=== PATIENT | female | born 1950 | race Caucasian/White ===

== ENCOUNTER 2020-06-05 09:19 | Outpatient (CLI) | payer OTHER, SELFPAY ==
--- NOTE | ~2020-06-05 | MM_ITS ---
EXAMINATION: MM screening tommie BI w harvinder HISTORY: Screening TECHNIQUE: Craniocaudal and mediolateral oblique 3-D tomosynthesis images were obtained and synthetic 2-D images were generated. CAD analysis was submitted and interpreted. COMPARISON: Comparison to multiple prior studies sequentially, with oldest reviewed study dated 04/24. BREAST PARENCHYMAL COMPOSITION: The breasts are extremely dense, which lowers the sensitivity of mamm ography. FINDINGS: There is no evidence of suspicious mass, calcification, or architectural distortion to sugg est malignancy in either breast. There has been no suspicious interval change. IMPRESSION: 1. No mammographic evidence of malignancy. 2. Recommend routine screening mammography in one year. BI-RADS Category 1: Negative Reviewed, dictated and finalized at location A.
== END 2020-06-05 09:20 | disposition home or self-care (01) ==
PROVIDERS: PCP Family Medicine; Visit Provider Obstetrics & Gynecology Gynecology
DX: Z12.31 Encounter for screening mammogram for malignant neoplasm of breast (principal)
CPT/HCPCS: 77063; 77067

== ENCOUNTER 2021-06-15 10:22 | Outpatient (CLI) | payer OTHER, SELFPAY ==
--- NOTE | ~2021-06-15 | DEXA_ITS ---
Bone Density Report Name: Doreen Ingram Age: 71 Sex: Female Ethnicity: White Date of : 1950 Indication: postmenopausal; Referring Provider: JUAN, ARACELIS Study: Bone densitometry was performed. Exam Date: June 15, 2021 Accession number: [id number] Bone Density: Region BMD T-score Z-score Classification AP Spine (L1, L3) 1.282 2.4 4.6 Normal Femoral Neck (Left) 0.739 -1.0 0.9 Normal Total Hip (Left) 0.816 -1.0 0.6 Normal Total Hip Bilateral Avg 0.811 -1.1 0.6 Osteopenia Femoral Neck (Right) 0.727 -1.1 0.8 Osteopenia Total Hip (Right) 0.804 -1.1 0.5 Osteopenia World Health Organization criteria for BMD impression classify patients as: Normal (T-score at or above -1.0), Osteopenia (T-score between -1.0 and -2.5), or Osteoporosis (T-score at or below -2.5). 10-year Fracture Risk(1): Major Osteoporotic Fracture 9.1% Hip Fracture 1.2% Reported Risk Factors: [place] (), Neck BMD=0.727, BMI=23.1 (1) FRAX(R) Version 3.08. Fracture probability calculated for an untreated patient. Fracture probability may be lower if the patient has received treatment. Previous Exams: Region Exam Age BMD T-score BMD Change BMD Change Date g/cm2 vs Baseline vs Previous AP Spine(L1, L3) 06/15/2021 71 1.282 2.4 0.017(1.3%)# 0.054(4.4%)* 06/01/2018 68 1.228 2.0 -0.037(-2.9%)# -0.018(-1.4%) 04/24/2015 65 1.246 2.1 -0.019(-1.5%)# -0.019(-1.5%)# 03/29/2012 62 1.265 2.3 Total Hip(Left) 06/15/2021 71 0.816 -1.0 -0.119(-12.7%) -0.020(-2.4%) 06/01/2018 68 0.836 -0.9 -0.099(-10.6%) -0.092(-9.9%)* 04/24/2015 65 0.928 -0.1 -0.007(-0.8%)# -0.007(-0.8%)# 03/29/2012 62 0.935 -0.1 Total Hip(Right) 06/15/2021 71 0.804 -1.1 -0.103(-11.3%) -0.029(-3.5%)* 06/01/2018 68 0.833 -0.9 -0.074(-8.1%)# -0.024(-2.8%) 04/24/2015 65 0.857 -0.7 -0.050(-5.5%)# -0.050(-5.5%)# 03/29/2012 62 0.907 -0.3 *Denotes significance at 95% confidence level, LSC for AP Spine = 0.022 g/cm2, LSC for Total Hip = 0.027 g/cm2 Clinical Information Provided by Patient: Has used the following medications: Vitamin D, Calcium Patient maximum height was 67 Menopause Age: 49 Drinks caffeinated beverages Onset of menses at age 13 Number of children 0 Impression: The patient has low bone mass, based on the Right Total Hip T-score. The patient has an estimated ten-year risk of hip fracture of 1.2% and
--- NOTE | ~2021-06-15 | MM_ITS ---
EXAMINATION: MM screening tommie BI w harvinder HISTORY: Screening TECHNIQUE: Craniocaudal and mediolateral oblique 3-D tomosynthesis images were obtained and synthetic 2-D images were generated. CAD analysis was submitted and interpreted. COMPARISON: Comparison to multiple prior studies sequentially, with oldest reviewed study dated 05/2016. BREAST PARENCHYMAL COMPOSITION: The breasts are extremely dense, which lowers the sensitivity of mamm ography. FINDINGS: There is no evidence of suspicious mass, calcification, or architectural distortion to sugg est malignancy in either breast. There has been no suspicious interval change. IMPRESSION: 1. No mammographic evidence of malignancy. 2. Recommend routine screening mammography in one year. BI-RADS Category 1: Negative Reviewed, dictated and finalized at location A.
== END 2021-06-15 10:23 | disposition home or self-care (01) ==
PROVIDERS: PCP Family Medicine; Visit Provider Nurse Practitioner
DX: Z12.31 Encounter for screening mammogram for malignant neoplasm of breast (principal); Z78.0 Asymptomatic menopausal state; M85.851 Other specified disorders of bone density and structure, right thigh
CPT/HCPCS: 77063; 77067; 77080

== ENCOUNTER 2021-08-20 10:25 | Outpatient (CLI) | payer OTHER, SELFPAY ==
--- NOTE | 2021-08-20 | ECG_ITS ---
Measurements Intervals [place] Rate: 59 P: 58 UT: 137 QRS: 52 QRSD: 77 T: 53 QT: 442 QTc: 441 Interpretive Statements SINUS BRADYCARDIA LEFT VENTRICULAR HYPERTROPHY AND ST-T CHANGE BORDERLINE ECG Electronically Signed On 08-20-2021 11:20:49 CDT by Michele Edge D.O.
== END 2021-08-20 10:26 | disposition home or self-care (01) ==
LOC: ANHLAB 10:27
PROVIDERS: PCP Family Medicine; Visit Provider Podiatrist Foot & Ankle Surgery
DX: R03.0 Elevated blood-pressure reading, without diagnosis of hypertension (principal)
CPT/HCPCS: 93005

== ENCOUNTER → 2022-07-26 10:41 | Outpatient (CLI) | payer OTHER, SELFPAY ==
--- NOTE | ~2022-07-26 | MM_ITS ---
EXAMINATION: MM screening tommie BI w harvinder HISTORY: .. TECHNIQUE: Craniocaudal and mediolateral oblique 3-D tomosynthesis images were obtained and synthetic 2-D images were generated. CAD analysis was submitted and interpreted. COMPARISON: 06/15/2021, 06/01/2020, 06/03/2019 bilateral screening mammogram examinations BREAST PARENCHYMAL COMPOSITION: The breasts are heterogeneously dense, which may obscure small masses . FINDINGS: There is no evidence of suspicious mass, calcification, or architectural distortion to sugg est malignancy in either breast. There has been no suspicious interval change. IMPRESSION: 1. No mammographic evidence of malignancy. 2. Recommend routine screening mammography in one year. BI-RADS Category 1: Negative Reviewed, dictated and finalized at location A.
== END ==
PROVIDERS: PCP Family Medicine; Visit Provider Obstetrics & Gynecology Gynecology
DX: Z12.31 Encounter for screening mammogram for malignant neoplasm of breast (principal)
CPT/HCPCS: 77063; 77067

== ENCOUNTER 2023-07-29 10:19 | Outpatient (CLI) | payer OTHER, SELFPAY ==
--- NOTE | ~2023-07-29 | MM_ITS ---
EXAMINATION: MM screening tommie BI w harvinder HISTORY: Screening mammogram TECHNIQUE: Craniocaudal and mediolateral oblique 3-D tomosynthesis images were obtained and synthetic 2-D images were generated. CAD analysis was submitted and interpreted. COMPARISON: 07/26/2022, 06/15/2021, 06/01/2020 bilateral screening mammogram examinations BREAST PARENCHYMAL COMPOSITION: The breasts are heterogeneously dense, which may obscure small masses . FINDINGS: There is no evidence of suspicious mass, calcification, or architectural distortion to sugg est malignancy in either breast. There has been no suspicious interval change. IMPRESSION: 1. No mammographic evidence of malignancy. 2. Recommend routine screening mammography in one year. BI-RADS Category 1: Negative Reviewed, dictated and finalized at location A.
== END 2023-07-29 10:20 | disposition home or self-care (01) ==
PROVIDERS: PCP Family Medicine; Visit Provider Family Medicine
DX: Z12.31 Encounter for screening mammogram for malignant neoplasm of breast (principal)
CPT/HCPCS: 77063; 77067

== ENCOUNTER 2024-08-02 10:09 | Outpatient (CLI) | payer OTHER, SELFPAY ==
--- NOTE | ~2024-08-02 | MM_ITS ---
EXAMINATION: MM screening tommie BI w harvinder HISTORY: Screening mammogram, family history of breast cancer in her sister. TECHNIQUE: Craniocaudal and mediolateral oblique 3-D tomosynthesis images were obtained and synthetic 2-D images were generated. CAD analysis was submitted and interpreted. COMPARISON: 07/29/2023, 07/26/2022, 06/15/2021, 06/05/2020 BREAST PARENCHYMAL COMPOSITION:Dense: The breasts are extremely dense, which lowers the sensitivity o f mammography. FINDINGS: No suspicious mass, calcification, or architectural distortion are identified in either aubrey ast to suggest malignancy. There has been no suspicious interval change. IMPRESSION: No mammographic evidence of malignancy. Recommend routine screening mammography in one year. BI-RADS Category 1: Negative Reviewed, dictated and finalized at location .
== END 2024-08-02 10:10 | disposition home or self-care (01) ==
LOC: ANHIMG 10:12
PROVIDERS: PCP Family Medicine; Visit Provider Family Medicine
DX: Z12.31 Encounter for screening mammogram for malignant neoplasm of breast (principal)
CPT/HCPCS: 77063; 77067

== ENCOUNTER 2024-09-19 08:08 | Outpatient (CLI) | payer OTHER, SELFPAY ==
[2024-09-19 09:37] LABS: Basophils Absolute Auto 0.1 K/mm3 (0.0-0.1); Basophils Percent Auto 1.3 % (0.2-1.2); Eosinophils Absolute Auto 0.4 K/mm3 (0-0.3); Eosinophils Percent Auto 6.2 % (0-4.4); Hematocrit 40.8 % (37.0-47.0); Hemoglobin 13.3 g/dL (12.0-15.0); Immature Granulocyte Absolute 0.02 K/mm3 (0.00-0.031); Immature Granulocyte Percent A 0.3 % (0-0.5); Lymphocytes Absolute Auto 1.86 K/mm3 (0.9-3.2); Lymphocytes Percent Auto 29.4 % (18.3-44.2); Mean Corpuscular HGB Conc 32.6 g/dl (32-36); Mean Corpuscular Hemoglobin 32.7 pg (26-34); Mean Corpuscular Volume 100.2 fl (80-100); Mean Platelet Volume 10.4 fl (7.4-10.4); Monocytes Absolute Auto 0.6 K/mm3 (0.1-0.6); Monocytes Percent Auto 8.7 % (2.6-8.5); Neutrophils Absolute Auto 3.4 K/mm3 (1.3-6.7); Neutrophils Percent Auto 54.1 % (45.5-73.1); Platelet Count Result 207 k/mm3 (150-375); Red Blood Count 4.07 M/mm3 (4.2-5.4); Red Cell Distribution Width 12.2 % (11.5-14.5); White Blood Count 6.3 K/mm3 (4.5-10.0)
[2024-09-19 09:51] LABS: Alanine Aminotransferase 22 U/L (6-35); Albumin Level 4.3 g/dL (3.5-5.1); Alkaline Phosphatase 65 U/L (38-126); Anion Gap 8 mmol/L (4-12); Aspartate Amino Transferase 40 U/L (14-36); Bilirubin,Total 0.7 mg/dL (0.2-1.3); Blood Urea Nitrogen 21 mg/dL (7-17); Calcium 9.2 mg/dL (8.4-10.2); Carbon Dioxide 28 mmol/L (22-30); Chloride 104 mmol/L (98-107); Cholesterol 209 mg/dL (0-200); Estimated Glomerular Filt Rate > 60; Glucose 101 mg/dL (65-110); HDL Direct 87 mg/dL; Potassium 4.6 mmol/L (3.4-5.0); Sodium 140 mmol/L (137-145); Triglycerides 76 mg/dL (<150)
[2024-09-19 10:09] LABS: LDL Cholesterol Direct 87 mg/dL
[2024-09-19 10:21] LABS: Vitamin D 25 Hydroxy 28.7 ng/mL
== END 2024-09-19 08:09 | disposition home or self-care (01) ==
LOC: ANHGOSHLAB 08:10
PROVIDERS: PCP Family Medicine; Visit Provider Nurse Practitioner Family
DX: E53.8 Deficiency of other specified B group vitamins (principal); E03.9 Hypothyroidism, unspecified; E06.9 Thyroiditis, unspecified; G90.09 Other idiopathic peripheral autonomic neuropathy; Z13.220 Encounter for screening for lipoid disorders; E61.1 Iron deficiency; E55.9 Vitamin D deficiency, unspecified
CPT/HCPCS: 36415; 80053; 80061; 82306; 82607; 84443; 85025

== ENCOUNTER 2025-08-27 08:28 | Outpatient (CLI) | payer OTHER, SELFPAY ==
--- NOTE | ~2025-08-27 | MM_ITS ---
EXAMINATION: MM screening tommie BI w harvinder HISTORY: Screening TECHNIQUE: Craniocaudal and mediolateral oblique 3-D tomosynthesis images were obtained and synthetic 2-D images were generated. CAD analysis was submitted and interpreted. COMPARISON: 07/29/2023 BREAST PARENCHYMAL COMPOSITION: The breasts are extremely dense, which lowers the sensitivity of mammography. FINDINGS: There is no evidence of suspicious mass, calcification, or architectural distortion to suggest malignancy. There has been no suspicious interval change. IMPRESSION: 1. No mammographic evidence of malignancy. Recommend routine screening mammography in one year. BI-RADS Category 2: Benign finding(s) Reviewed, dictated and finalized at location Q. IMPRESSION: 1. No mammographic evidence of malignancy. Recommend routine screening mammogra phy in one year. BI-RADS Category 2: Benign finding(s)
--- OUTSIDE RECORDS SUMMARY | 2025-08-27 08:56 | XMS_ITS | Encounter Summary ---
Author Organization [facility] Address [address] [facility] [place] [address] Care Team Providers Care Contact Center Rep Name Role Phone Unavailable Primary Care Provider Unavailabl e Encounter Details Date Type Department Care Team (Late st Contact Info) Description 09/02/2024 Lab Requisition [facility] - DermPath Lab [address] [place] [phone] Sabas Tarango MD [facility] [address] [place] [phone] Neoplasm of uncertain behavior of skin Social History Tobacco Use Types Packs/Day Years Used Date Smoking Tobacco: Never Assessed Comments Unknown Sex and Gender Information Value Date Recorded Sex Assigned at Not on file Legal Sex Female 4:42 PM CDT Gender Identity Not on file Sexual Orientation Not on file documented as of this encounter Plan of Treatment Not on file documented as of this encounter Procedures Procedure Name Priority Date/Time Associated Diagnosis Comments DERMATOPATHOLOGY Routine 09/02/2024 3:33 AM CDT Neoplasm of uncertain behavior of skin documented in this encounter Results * DERMATOPATHOLOGY (09/02/2024 3:33 AM CDT) Case Report Dermatopathology Report Case: [id number] Authorizing Provider: Sabas Tarango MD Collected: 09/02/2024 03:33 AM Ordering Location: [facility] - Received: 09/03/2024 12:21 PM DermPath Lab Pathologist: Cha Velazquez MD Specimen: Skin, left medial cheek 12:33 PM CDT DERMATOPATHOLOGY LABORATORY Final Diagnosis Specimen A. 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 The specimen consists of a shave biopsy measuring 5x5x1 mm. Jar 0. 12:33 PM CDT DERMATOPATHOLOGY LABORATORY Microscopic Description Specimen A. SKIN, left medial cheek: Within the dermis there are aggregates of basaloid cells with a high nuclear to cytoplasmic ratio and peripheral palisading. 12:33 PM CDT DERMATOPATHOLOGY LABORATORY Disclaimer An external and internal positive and negative controls are appropriate for the histochemical, immunohistochemical and immunofluorescence stain(s) in this case (if any), except where stated explicitly. The performance characteristics of the stain(s) cited in this report were developed and its performance characteristic determined by the Dermatopathology Laboratory at [facility], directed by Dr. Carlyle Galloway. These tests need not be, and therefore are not, approved by the [place] Food and Drug Administration. The tests are used for clinical purposes. Billing Codes Specimen Charges Stain Charges 54185 1 12:33 PM CDT DERMATOPATHOLOGY LABORATORY Embedded Images 12:33 PM CDT DERMATOPATHOLOGY LABORATORY Pathology/Cytolo gy TISSUE SPECIMEN FROM SKIN / Unknown 09/02/2024 3:33 AM CDT 09/03/2024 12:21 PM CDT us Sabas Tarango MD LAB - PATHOLOGY/CYTOLOGY [facility] Final Result DERMATOPATHOLOGY LABORATORY [facility] - Department of Dermatology [address], [address] [phone] documented in this encounter Visit Diagnoses Diagnosis Neoplasm of uncertain behavior of skin documented in this encounter
--- OUTSIDE RECORDS SUMMARY | 2025-08-27 08:56 | XMS_ITS | Encounter Summary ---
Author Organization [facility] Address [address] [facility] [place] [address] Care Team Providers Care Automobile Leasing Supervisor Name Role Phone Unavailable Primary Care Provider Unavailabl e Encounter Details Date Type Department Care Team (Late st Contact Info) Description 02/21/2025 Lab Requisition [facility] - DermPath Lab [address] [place] [phone] Sabas Tarango MD [facility] [address] [place] [phone] Social History Tobacco Use Types Packs/Day Years [...] Priority Date/Time Associated Diagnosis Comments DERMATOPATHOLOGY Routine 02/20/2025 12:0 0 AM CDT documented in this encounter Results * DERMATOPATHOLOGY (02/20/2025 12:00 AM CDT) Case Report Dermatopathology Report Case: [id number] Authorizing Provider: Sabas Tarango MD Collected: 02/20/2025 12:00 AM Ordering Location: [facility] - Received: 02/21/2025 04:43 PM DermPath Lab Pathologist: Randa Muse MD Specimens: A) - Skin, right lateral calf B) - Skin, right nasal dorsum 1:39 PM CDT DERMATOPATHOLOGY LABORATORY Final Diagnosis Specimen A. 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 SKIN, right nasal dorsum: BASAL CELL CARCINOMA, NODULAR TYPE (C44.311) 1:39 PM CDT DERMATOPATHOLOGY LABORATORY at 1339 CDT Clinical History A: SCC vs Keratoacanthoma B: BCC 1:39 PM CDT DERMATOPATHOLOGY LABORATORY Gross Description Specimen A: Received is one formalin filled container labeled with the patient's name and designated right lateral calf. The specimen consists of a shave biopsy measuring 25z00c3 mm. Jar 0. Specimen B: Received is one formalin filled container labeled with the patient's name and designated right nasal dorsum. The specimen consists of a shave biopsy measuring 6x5x1 mm. Jar 0. 1:39 PM CDT DERMATOPATHOLOGY LABORATORY Microscopic Description Specimen A. SKIN, right lateral calf: The epidermis is acanthotic and shows full thickness disorderly maturation of keratinocytes, mitoses at different levels, and dyskeratotic cells. There is overlying parakeratosis and hyperkeratosis. Focal nests are present in the dermis. Specimen B. SKIN, right nasal dorsum: Within the dermis there are aggregates of basaloid cells with a high nuclear to cytoplasmic ratio and peripheral palisading. 1:39 PM CDT DERMATOPATHOLOGY LABORATORY Disclaimer An external and internal positive and negative controls are appropriate for the histochemical, immunohistochemical and immunofluorescence stain(s) in this case (if any), except where stated explicitly. The performance characteristics of the stain(s) cited in this report were developed and its performance characteristic determined by the Dermatopathology Laboratory at [facility], directed by Dr. Carlyle Galloway. These tests need not be, and therefore are not, approved by the [place] Food and Drug Administration. The tests are used for clinical purposes. Billing Codes Specimen Charges Stain Charges 81661 09326 1 1 1:39 PM CDT DERMATOPATHOLOGY LABORATORY Embedded Images 1:39 PM CDT DERMATOPATHOLOGY LABORATORY Pathology/Cytology TISSUE SPECIMEN FROM SKIN / Unknown 02/20/2025 02/21/2025 4:43 PM CDT Miscellaneous samples (specimen) TISSUE SPECIMEN FROM SKIN / Unknown 02/20/2025 02/21/2025 4:43 PM CDT us Sabas Tarango MD LAB - PATHOLOGY/CYTOLOGY ORDE LUIS Final Result DERMATOPATHOLOGY LABORATORY [facility] - Department of Dermatology [facility] Medicine [address] [place] [address], [address] [phone] documented in this encounter Visit Diagnoses Not on filedocumented in this encounter
--- OUTSIDE RECORDS SUMMARY | 2025-08-27 08:56 | XMS_ITS | Clinical Summary ---
Author Organization [address] Address [address] [place] [phone] Care Team Providers Care Securities Counselor Name Role Phone Unknown, Notinfile Primary Care Provider Unavail able Allergies No known active allergies Medications Poly-Iron 150 Forte 150-25-1 mg-mcg-mg capsule TAKE 1 CAPSULE BY MOUTH TWICE DAILY. AVOID DAIRY/CALCIUM CONTAINING PRODUCTS AND/OR ANTACIDS FOR AT LEAST TWO HOURS BEFORE AND AFTER DOSE 3 Active levothyroxine (SYNTHROID) 100 mcg recon soln 1.25 mL (25 mcg total) Active Active Problems No known active problems Social History Tobacco Use Types Packs/Day Years Used Date Smoking Tobacco: Never Assessed Comments Unknown Sex and Gender Information Value Date Recorded Sex Assigned at Not on file Legal Sex Female 7:53 PM DENTAL LABORATORY ASSISTANT Gender Identity Not on file Sexual Orientation Not on file Obstetrics History Last Filed Vital Signs Vital Sign Reading Time Taken Comments Blood Pressure 123/71 11/04/2023 8:12 AM DENTAL LABORATORY ASSISTANT Pulse 71 11/04/2023 8:12 AM DENTAL LABORATORY ASSISTANT Temperature 36.5 C (97.7 F) 11/04/2023 8:12 AM DENTAL LABORATORY ASSISTANT Respiratory Rate 14 11/04/2023 8:12 AM DENTAL LABORATORY ASSISTANT Oxygen Saturation 99% 11/04/2023 8:12 AM DENTAL LABORATORY ASSISTANT Inhaled Oxygen Concentration - - Weight 65.8 kg (145 lb) 11/04/2023 8:12 AM DENTAL LABORATORY ASSISTANT Height 170.2 cm (5' 7) 11/04/2023 8:12 AM DENTAL LABORATORY ASSISTANT Body Mass Index 22.71 11/04/2023 8:12 AM DENTAL LABORATORY ASSISTANT Plan of Treatment Health Maintenance Due Date Last Done Comments Depression Screening 1950 Fall Risk Assessment 1950 Hepatitis C Screening 1950 Osteoporosis Screening-Bone Density Scan 1950 DTaP/Tdap/Td Vaccine (1 - Tdap) 1960 Hepatitis B Screening 1967 Pneumococcal vaccine 65+ (1 of 1 - PCV) 1999 Zoster Vaccine (1 of 2) 1999 Well Visit 65+ 2014 Influenza Vaccine (#1) 2025 Insurance [facility] [id number] Care Teams Securities Counselor Relationship Specialty Start Date End Date Unknown, Notinfile PCP - General 11/04/23
--- OUTSIDE RECORDS SUMMARY | 2025-08-27 08:56 | XMS_ITS | Encounter Summary ---
Author Organization [facility] Address [address] [facility] [place] [address] Care Team Providers Care Departmental Buyer Name Role Phone Unavailable Primary Care Provider Unavailabl e Encounter Details Date Type Department Care Team (Late st Contact Info) Description 03/13/2025 Lab Requisition [facility] - DermPath Lab [address] [place] [phone] Sabas Tarango MD [facility] DERMATOLOGY [address] [place] [phone] Squamous cell carcinoma of skin of right lower limb, including hip Social History Tobacco Use Types Packs/Day Years [...] Priority Date/Time Associated Diagnosis Comments DERMATOPATHOLOGY Routine 03/13/2025 1:44 PM CDT Squamous cell carcinoma of skin of right lower limb, including hip documented in this encounter Results * DERMATOPATHOLOGY (03/13/2025 1:44 PM CDT) Case Report Dermatopathology Report Case: [id number] Authorizing Provider: Sabas Tarango MD Collected: 03/13/2025 01:44 PM Ordering Location: [facility] Physician [facility] - Received: 03/17/2025 06:27 AM DermPath Lab Pathologist: Nacho Galloway MD Specimen: Skin, right lateral calf 3:24 PM CDT DERMATOPATHOLOGY LABORATORY Final Diagnosis Specimen A. SKIN, right lateral calf: DERMAL SCAR RESIDUAL SQUAMOUS CELL CARCINOMA NOT IDENTIFIED (L90.5) 3:24 PM CDT DERMATOPATHOLOGY LABORATORY at 1524 CDT Clinical History SCC Check Margins/prior biopsy 3:24 PM CDT DERMATOPATHOLOGY LABORATORY Gross Description Specimen A: Received is one formalin filled container labeled with the patient's name and designated right lateral calf. The specimen consists of a non-oriented ellipse of skin measuring 67h99w8 mm. The epidermal surface is unremarkable. The margin is inked green. The 12 o'clock and 6 o'clock tips are submitted in cassette 1. The remainder of the ellipse is serially sectioned and submitted in cassette 2-3. Jar 0. 3:24 PM CDT DERMATOPATHOLOGY LABORATORY Microscopic Description Specimen A. SKIN, right lateral calf: There are fibroblasts and collagen bundles oriented parallel to the skin surface. There are elongated blood vessels, some of which are oriented perpendicular to the skin surface. No residual squamous cell carcinoma is identified. 3:24 PM CDT DERMATOPATHOLOGY LABORATORY Disclaimer An external and internal positive and negative controls are appropriate for the histochemical, immunohistochemical and immunofluorescence stain(s) in this case (if any), except where stated explicitly. The performance characteristics of the stain(s) cited in this report were developed and its performance characteristic determined by the Dermatopathology Laboratory at [facility], directed by Dr. Carlyle Galloway. These tests need not be, and therefore are not, approved by the [place] Food and Drug Administration. The tests are used for clinical purposes. Billing Codes Specimen Charges Stain Charges 52884 1 3:24 PM CDT DERMATOPATHOLOGY LABORATORY Embedded Images 3:24 PM CDT DERMATOPATHOLOGY LABORATORY Pathology/Cytolo gy TISSUE SPECIMEN FROM SKIN / Unknown 03/13/2025 1:44 PM CDT 03/17/2025 6:27 AM CDT Sabas Tarango MD LAB - PATHOLOGY/CYTOLOGY DEMARCUSE LUIS Final Result DERMATOPATHOLOGY LABORATORY [facility] - Department of Dermatology [facility] [address] [facility], [address] [phone] documented in this encounter Visit Diagnoses Diagnosis Squamous cell carcinoma of skin of right lower limb, including hip Squamous cell carcinoma of skin of lower limb, including hip documented in this encounter
--- OUTSIDE RECORDS SUMMARY | 2025-08-27 08:56 | XMS_ITS | Clinical Summary ---
Author Organization [facility] Address [address] [place] [address] Care Team Providers Care Reinforced Concrete Inspector Name Role Phone Unavailable Primary Care Provider Unavailabl e Source Comments [facility],non-owned Affiliates and Associated Physician Practices is amultiple site organization consisting of ambulatory clinics and hospital sitesin [place], [place], [place] and [place]. This disclosure is being madepursuant to the Care Everywhere program and may not contain all information available regarding this patient. Last updated 18.[facility] [employer] Social History Tobacco Use Types Packs/Day Years Used Date Smoking Tobacco: Never Assessed Comments Unknown Sex and Gender Information Value Date Recorded Sex Assigned at Not on file Legal Sex Female 4:42 PM CDT Gender Identity Not on file Sexual Orientation Not on file Plan of Treatment Health Maintenance Due Date Last Done Comments BONE DENSITY TESTING 1950 HEPATITIS C SCREENING 03/18/1967 DTAP/TDAP/TD VACCINES (1 - Tdap) 1968 PNEUMOCOCCAL VACCINE 50+ (1 of 1 - PCV) 1999 ZOSTER VACCINE (1 of 2) 1999 Respiratory Syncytial Virus (RSV) Vaccine Pt: or over 60 yrs (1 - 1-dose 75+ series) 2024 DEPRESSION SCREENING 11/13/2024 COVID-19 VACCINE ( - 2023-2 5 season) 2025 INFLUENZA VACCINE (#1) 2025 HEPATITIS B VACCINE Aged Out No longe r eligible based on patient's age to complete this topic HIB VACCINE Aged Out No longer eligi ble based on patient's age to complete this topic HPV VACCINE Aged Out No longer eligi ble based on patient's age to complete this topic MENINGOCOCCAL (Group B) VACC INE SHARED DECISION-MAKING Aged Out No longer eligibl e based on patient's age to complete this topic MENINGOCOCCAL GROUPS A/C/Y/W VACCINE Aged Out No longer eligible b ased on patient's age to complete this topic Insurance [employer] Member Subscriber Plan / Payer (Ef fective for All Dates) Name:Doreen Ingram Member ID:[id number] Relation to Subscriber:Self Name:Doreen Ingram Subscriber ID:[id number] Payer ID:Not on file Group ID:Not on file Type:[facility] Address: [address] [employer] HE[employer] HE[employer]LINK HE[employer]LINK
--- OUTSIDE RECORDS SUMMARY | 2025-08-27 08:56 | XMS_ITS | Encounter Summary ---
Author Organization [facility] Address [address] [place] [address] Care Team Providers Care Transition Manager Name Role Phone Unavailable Primary Care Provider Unavailabl e Encounter Details Date Type Department Care Team (Late st Contact Info) Description 04/21/2023 Lab Requisition [facility] - DermPath Lab [address] [place] [phone] Corinna David MD [address] [place] [address] [place] [phone] Basal cell carcinoma of skin of other part of trunk Social History Tobacco Use Types Packs/Day Years [...] Priority Date/Time Associated Diagnosis Comments DERMATOPATHOLOGY Routine 04/21/2023 3:33 AM CDT Basal cell carcinoma of skin of other part of trunk [ICD-10-CM] documented in this encounter Results * DERMATOPATHOLOGY (04/21/2023 3:33 AM CDT) Case Report Dermatopathology Report Case: [id number] Authorizing Provider: Corinna David MD Collected: 04/21/2023 03:33 AM Ordering Location: [facility] DermPath Lab Received: 04/24/2023 12:17 PM Pathologist: Randa Muse MD Specimen: Skin, left med chest 12:20 PM CDT DERMATOPATHOLOGY LABORATORY Final Diagnosis Specimen A. SKIN, left med chest: DERMAL SCAR RESIDUAL BASAL CELL CARCINOMA NOT IDENTIFIED (L90.5) 3 12:20 PM CDT DERMATOPATHOLOGY LABORATORY at 1220 CDT Clinical History Basal Cell Carcinoma. Check Margins. 3 12:20 PM CDT DERMATOPATHOLOGY LABORATORY Gross Description Specimen A: Received is one formalin filled container labeled with the patient's name and designated left med chest. The specimen consists of a non-oriented ellipse of skin measuring 21e29g4 mm. The epidermal surface is unremarkable. The margin is inked green. The 12 o'clock and 6 o'clock tips are submitted in cassette 1. The remainder of the ellipse is serially sectioned and submitted in cassette 2-3. Jar 0. 3 12:20 PM CDT DERMATOPATHOLOGY LABORATORY Microscopic Description Specimen A. SKIN, left med chest: There are fibroblasts and collagen bundles oriented parallel to the skin surface. There are elongated blood vessels, some of which are oriented perpendicular to the skin surface. No basal cell carcinoma is identified. 3 12:20 PM CDT DERMATOPATHOLOGY LABORATORY Disclaimer An external and internal positive and negative controls are appropriate for the histochemical, immunohistochemical and immunofluorescence stain(s) in this case (if any), except where stated explicitly. The performance characteristics of the stain(s) cited in this report were developed and its performance characteristic determined by the Dermatopathology Laboratory at [facility], directed by Dr. Carlyle Galloway. These tests need not be, and therefore are not, approved by the [place] Food and Drug Administration. The tests are used for clinical purposes. Billing Codes Specimen Charges Stain Charges 08915 1 3 12:20 PM CDT DERMATOPATHOLOGY LABORATORY Embedded Images 3 12:20 PM CDT DERMATOPATHOLOGY LABORATORY Pathology/Cytolo gy TISSUE SPECIMEN FROM SKIN / Unknown 04/21/2023 3:33 AM CDT 04/24/2023 12:17 PM CDT us Corinna David MD LAB - PATHOLOGY/CYTOLOGY ORDERAB LES Final Result DERMATOPATHOLOGY LABORATORY [facility] - Department of Dermatology [address] [place] [address], [facility] [phone] documented in this encounter Visit Diagnoses Diagnosis Basal cell carcinoma of skin of other part of trunk documented in this encounter
== END 2025-08-27 08:29 | disposition home or self-care (01) ==
LOC: ANHFOHIMG 08:33
PROVIDERS: PCP Family Medicine; Visit Provider Family Medicine
DX: Z12.31 Encounter for screening mammogram for malignant neoplasm of breast (principal)
CPT/HCPCS: 77063; 77067

== ENCOUNTER 2025-08-28 12:58 | Emergency (ER) | payer OTHER, SELFPAY ==
--- NOTE | ~2025-08-28 | XR_ITS ---
EXAMINATION: XR hand LT min 3V, 08/28/2025 13:40 CDT HISTORY: laceration COMPARISON: No comparisons available. Findings: Questionable nondisplaced fracture distal aspect distal phalanx, third Digit, clinical correlation is required. No significant degenerative changes. Soft tissues unremarkable. Impression: Please see above Reviewed, dictated and finalized at location P. Impression: Please see above
--- OUTSIDE RECORDS SUMMARY | 2025-08-28 12:00 | XMS_ITS | Encounter Summary ---
Author Organization [facility] Address [address] [place] [address] Care Team Providers Care Electronic Imager Name Role Phone Unknown, Notinfile Primary Care Provider Unavail able Reason for Referral * Diagnostic Imaging (Routine) - Closed Specialty Diagnoses / Procedures Referred By Demar crockett Referred To Contact Diagnoses Laceration of multiple sites of left hand and fingers, initial encounter Procedures XR Hand Left 3 or More Views Maureen Ruiz NP [address] [place] [address] Phone: tel: fax: [facility] Referral ID Status Reason Start Date Expiration Date Visits Re quested Visits Authorized [id number] Closed 08/28/2025 09/27/2026 1 1 Reason for Visit * Reason Comments Laceration Cute 4 fingers about an hour ago on electric trimming em. 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 Gender Identity Not on file Sexual Orientation Not on file documented as of this encounter Last Filed Vital Signs Vital Sign Reading Time Taken Comments Blood Pressure 138/80 08/28/2025 11:40 AM CDT Pulse 70 08/28/2025 11:40 AM CDT Temperature 36 C (96.8 F) 08/28/2025 11:40 AM CDT Respiratory Rate 16 08/28/2025 11:40 AM CDT Oxygen Saturation 99% 08/28/2025 11:40 AM CDT Inhaled Oxygen Concentration - - Weight 65.8 kg (145 lb) 08/28/2025 11:40 AM CDT Height - - Body Mass Index 22.71 11/04/2023 8:12 AM NATURAL RESOURCE ECONOMIST documented in this encounter Patient Instructions * Patient Instructions* Maureen Ruiz NP - 08/28/2025 12:00 PM CDT Patient had laceration of 1st through 4th fingers on the distal tip on the volar side occurring this morning. Patient's last tetanus was May of 2024. Patient as a tuft fracture on x-ray and has alsonumb to the distal tip of the right middle finger. Patient did have lidocaine without epi prior to x-rays. Referred to the ED for hand surgeon referral, likely IV antibiotics due to open fracture and further management documented in this encounter Plan of Treatment Not on file documented as of this encounter Results * XR Hand Left 3 or More Views (08/28/2025 12:10 PM CDT) Anatomical Region Laterality Modality Upper Extremities, Hand Left Digital Radiography 08/28/2025 12:5 0 PM CDT Narrative 08/28/2025 12:51 PM CDT EXAM DESCRIPTION: XR HAND LEFT 3 OR MORE VIEWS REASON FOR STUDY: lacerations, lacerations index, middle, ring, and little with concern for open fracture on middle Pt complains of 3rd-5th digit pain after cutting them with a brittany. Possible fx to third digit. No prior surgery TECHNIQUE: Three views left hand. COMPARISON: None. FINDINGS: There is a laceration of the radial aspect 3rd distal phalanx, and on the lateral view along the volar aspect there is a small chip fracture from the 3rd distal phalanx. No other fracture or dislocation is seen. Mild arthritic change first carpometacarpal joint. No erosion. IMPRESSION: Laceration of the radial aspect 3rd distal phalanx with a small chip fracture from the 3rd distal phalanx. THIS IS AN ELECTRONICALLY VERIFIED FINAL REPORT 08/28/2025 12:51 PM - Electronically signed by Rafael Schmidt M.D. T: Report ID: [id number] Reading Location: [id number] Procedure Note Rafael Schmidt MD - 08/28/2025 EXAM DESCRIPTION: XR HAND LEFT 3 OR MORE VIEWS REASON FOR STUDY: lacerations, lacerations index, middle, ring, and little with concern for open fracture on middle Pt complains of 3rd-5th digit pain after cutting them with a brittany.Possible fx to third digit. No prior surgery TECHNIQUE: Three views left hand. COMPARISON: None. FINDINGS: There is a laceration of the radial aspect 3rd distal phalanx,and on the lateral view along the volar aspect there is a small chip fracturefrom the 3rd distal phalanx. No other fracture or dislocation is seen. Mild arthritic change first carpometacarpal joint. No erosion. IMPRESSION: Laceration of the radial aspect 3rd distal phalanx with asmall chip fracture from the 3rd distal phalanx. THIS IS AN ELECTRONICALLY VERIFIED FINAL REPORT 08/28/2025 12:51 PM - Electronically signed by Rafael Schmidt M.D. T: Report ID: [id number] Reading Location: [id number] Maureen Ruiz NP IMG XR PROCEDURES Final Re sult documented in this encounter Visit Diagnoses Diagnosis Laceration of multiple sites of left hand and fingers, initial encounter- Primary Laceration of multiple sites of left hand and fingers, initial encounter documented in this encounter Care Teams Electronic Imager Relationship Specialty Start Date End Date Unknown, Notinfile PCP - General 11/04/23 documented as of this encounter
--- OUTSIDE RECORDS SUMMARY | 2025-08-28 12:00 | XMS_ITS | Encounter Summary ---
Author Organization [facility] Healthcare Address [address] [place] [address] Care Team Providers Care Hand Glass Cutter Name Role Phone Unknown, Notinfile Primary Care Provider Unavail able Reason for Referral * Diagnostic Imaging (Routine) - Closed Specialty Diagnoses / Procedures Referred By Demar crockett Referred To Contact Diagnoses Laceration of multiple sites of left hand and fingers, initial encounter Procedures XR Hand Left 3 or More Views Maureen Ruiz NP [address] [place] [address] Phone: tel: fax: [facility] Referral ID Status Reason Start Date Expiration Date Visits Re quested Visits Authorized [id number] Closed 08/28/2025 09/27/2026 1 1 Reason for Visit * Reason Comments Laceration Cute 4 fingers about an hour ago on electric trimming em. 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 T: Report ID: [id number] Reading Location: [id number] Procedure Note Rafael Schmidt MD - 08/28/2025 [...] by Rafael Schmidt M.D. T: Report ID: [id number] Reading Location: [id number] Maureen Ruiz NP IMG XR PROCEDURES Final Re sult documented in this encounter Visit Diagnoses Diagnosis Laceration of multiple sites of left hand and fingers, initial encounter- Primary Laceration of multiple sites of left hand and fingers, initial encounter documented in this encounter Care Teams Hand Glass Cutter Relationship Specialty Start Date End Date Unknown, Notinfile PCP - General 11/04/23 documented as of this encounter
--- OUTSIDE RECORDS SUMMARY | 2025-08-28 12:05 | XMS_ITS | Encounter Summary ---
Author Organization [facility] Healthcare Address [address] [place] [address] Care Team Providers Care Museum Specialist Name Role Phone Unknown, Notinfile Primary Care Provider Unavail able Reason for Visit * Diagnostic Imaging (Routine) - Closed Specialty Diagnoses / Procedures Referred By Demar crockett Referred To Contact Diagnoses Laceration of multiple sites of left hand and fingers, initial encounter Procedures XR Hand Left 3 or More Views Maureen Ruiz, LOG MARKER [address] [place] [address] Phone: tel: fax: [facility] Referral ID Status Reason Start Date Expiration Date Visits Re quested Visits Authorized [id number] Closed 08/28/2025 09/27/2026 1 1 Encounter Details Date Type Department Care Team (Latest Contact Info) Description 08/28/2025 12:05 PM CDT Ancillary Procedure [facility] Imaging at [address] [phone] Laceration of multiple sites of left hand and fingers, initial encounter Social History Tobacco Use Types Packs/Day Years Used Date Smoking Tobacco: Never Assessed Comments Unknown Sex and Gender Information Value Date Recorded Sex Assigned at Not on file Legal Sex Female 7:53 PM DATA INTEGRITY CONSULTANT Gender Identity Not on file Sexual Orientation Not on file documented as of this encounter Plan of Treatment Not on file documented as of this encounter Procedures Procedure Name Priority Date/Time Associated Diagnosis Comments XR HAND LEFT 3 OR MORE VIEWS Schedule BRONWYN, Read BRONWYN (Appt Today, Awaiting Results) 08/28/2025 12:10 PM CDT Laceration of multiple sites of left hand and fingers, initial encounter documented in this encounter Results * XR Hand Left [...] by Rafael Schmidt M.D. T: Report ID: [id number] Reading Location: [id number] Procedure Note Rafael Schmidt MD - 08/28/2025 [...] by Rafael Schmidt M.D. T: Report ID: [id number] Reading Location: [place] [address] Maureen Ruiz LOG MARKER IMG XR PROCEDURES Final Re sult documented in this encounter Visit Diagnoses Diagnosis Laceration of multiple sites of left hand and fingers, initial encounter documented in this encounter Care Teams Museum Specialist Relationship Specialty Start Date End Date Unknown, Notinfile PCP - General 11/04/23 documented as of this encounter
--- OUTSIDE RECORDS SUMMARY | 2025-08-28 12:05 | XMS_ITS | Encounter Summary ---
Author Organization [facility] Healthcare Address [address] [place] [address] Care Team Providers Care Art Model Name Role Phone Unknown, Notinfile Primary Care Provider Unavail able Reason for Visit * Diagnostic Imaging (Routine) - Closed Specialty Diagnoses / Procedures Referred By Demar crockett Referred To Contact Diagnoses Laceration of multiple sites of left hand and fingers, initial encounter Procedures XR Hand Left 3 or More Views Maureen Ruiz, VISION SPECIALIST [address] [place] [address] Phone: tel: fax: [facility] Referral ID Status Reason Start Date Expiration Date Visits Re quested Visits Authorized [id number] Closed 08/28/2025 09/27/2026 1 1 Encounter Details Date Type Department Care Team (Latest Contact Info) Description 08/28/2025 12:05 PM [address]T [address] Procedure 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 T: Report ID: [id number] Reading Location: [id number] Procedure Note Rafael Schmidt MD - 08/28/2025 [...] by Rafael Schmidt M.D. T: Report ID: [id number] Reading Location: [place] [address] Maureen Ruiz VISION SPECIALIST IMG XR PROCEDURES Final Re sult documented in this encounter Visit Diagnoses Diagnosis Laceration of multiple sites of left hand and fingers, initial encounter documented in this encounter Care Teams Art Model Relationship Specialty Start Date End Date Unknown, Notinfile PCP - General 11/04/23 documented as of this encounter
[2025-08-28 13:27] VITALS: BP 169/59; PULSE 69; RESP 15; TEMP 36.4; O2SAT 100
--- NOTE | 2025-08-28 13:37 | ED.UPPEXIN ---
HPI - Extremity Injury (Upper) General Chief Complaint: Wound/Laceration <Meredith Arreola PA-C - Last Filed: 08/28/25 19:21> Stated Complaint: FINGER LACS TUFT FRACTURE <Meredith Arreola PA-C - Last Filed: 08/28/25 19:21> Time Seen by Provider: 08/28/25 13:38 <Meredith Arreola PA-C - Last Filed: 08/28/25 19:21> Focused HPI: This is a 75 year old female that presents to the ER for left hand lacerations. Sustained via hedge trimmers. Up to date on tetanus vaccination. GENERAL: Elderly, well-nourished, and in no acute distress. HEAD: Normocephalic, atraumatic. CHEST: No respiratory distress. HEART: Regular rate NEURO: ?Alert and oriented x3. Patient screened in triage and initial orders placed.? ?Additional care and disposition to be based upon?diagnostic testing and treatment. <Meredith Arreola PA-C - Last Filed: 08/28/25 19:21> History of Present Illness HPI narrative: I agree with the HPI as documented in the medical screening exam. The patient states her last tetanus vaccination was 1 year ago. She complains of 5/10 sharp pain. She denies other injuries and has no other complaints at this time. <Jonas Harris MD - Last Filed: 08/29/25 08:16> Related Data Allergies/Adverse Reactions: Allergies Allergy/AdvReac Type Severity Reaction Status Date / Time No Known Allergies Allergy Verified 08/28/25 12:59 <Meredith Arreola PA-C - Last Filed: 08/28/25 19:21> Review of Systems Review of Systems: All systems reviewed & are unremarkable except as noted in HPI and below <Jonas Harris MD - Last Filed: 08/29/25 08:16> PMFSH Past Medical History Medical History: Medical History History of mumps History of measles Nodular basal cell carcinoma <Meredith Arreola PA-C - Last Filed: 08/28/25 19:21> Family History Family History: Family History Sibling Breast cancer <Meredith Arreola PA-C - Last Filed: 08/28/25 19:21> Social History Social History: Social History Smoking status: Never smoker Alcohol intake: never <Meredith Arreola PA-C - Last Filed: 08/28/25 19:21> Exam Narrative: GENERAL: Well-developed, well-nourished, and in no acute distress. HEAD: Normocephalic, atraumatic. EYES: PERRLA and EOMI. CHEST: Clear to auscultation. No respiratory distress. No wheezes rales or rhonchi HEART: Regular rate and rhythm. No murmur heard. Normal peripheral pulses. ABDOMEN: Soft, nontender, nondistended, normal active bowel sounds. EXTREMITIES: A 4 cm laceration is noted over the ventral aspect of the left third distal finger. A 2 cm laceration is noted over the ventral aspect of the left fourth distal finger. A 1 cm laceration is noted just distal to this. A 3 cm laceration is noted over the ventral aspect of the left fifth distal finger. Normal range of motion. No edema. SKIN: Warm, dry, no rash. NEURO: No focal deficits. Alert and oriented x3. PSYCH: Normal mood and affect. <Jonas Harris MD - Last Filed: 08/29/25 08:16> Course Course Emergency Course: 18:57 - X-ray of the left hand shows changes somewhat concerning for fracture of the distal phalanx of the 3rd finger. Exam does not showed visible bone. The patient was given IV Ancef. Her tetanus vaccination is up-to-date. Lacerations were closed the 3rd 4th and 5th digits. Please see procedure note. The patient's fingers were placed in splints for protection. Will discharge with recommendation for oral antibiotics, pain medications and follow-up with Hand surgery. I advised the patient follow-up for suture removal in 7-10 days. I discussed the findings and recommendations with the patient. Discussed return and emergency precautions including signs/symptoms of wound infection and neurovascular compromise. The patient voiced understanding and agreement with the plan. All questions answered to her satisfaction. <Jonas Harris MD - Last Filed: 08/29/25 08:16> Vital Signs Vital signs: Vital Signs Temperature 97.6 F 08/28/25 13:27 Pulse Rate 69 08/28/25 13:27 Respiratory Rate 15 08/28/25 13:27 Blood Pressure 169/59 H 08/28/25 13:27 Pulse Oximetry 100 08/28/25 13:27 Temperature 97.6 F 08/28/25 13:27 Pulse Rate 69 08/28/25 13:27 Respiratory Rate 15 08/28/25 13:27 Blood Pressure 169/59 H 08/28/25 13:27 Pulse Oximetry 100 08/28/25 13:27 <Meredith Arreola PA-C - Last Filed: 08/28/25 19:21> Vital Signs Temperature 97.6 F 08/28/25 13:27 Pulse Rate 69 08/28/25 13:27 Respiratory Rate 15 08/28/25 13:27 Blood Pressure 169/59 H 08/28/25 13:27 Pulse Oximetry 100 08/28/25 13:27 Temperature 97.6 F 08/28/25 13:27 Pulse Rate 69 08/28/25 13:27 Respiratory Rate 15 08/28/25 13:27 Blood Pressure 169/59 H 08/28/25 13:27 Pulse Oximetry 100 08/28/25 13:27 <Jonas Harris MD - Last Filed: 08/29/25 08:16> Procedures Laceration Laceration 1: Date: 08/28/25 <Jonas Harris MD - Last Filed: 08/29/25 08:16> Time: 18:30 <Jonas Harris MD - Last Filed: 08/29/25 08:16> Site: upper extremity and hand (3rd finger) <Jonas Harris MD - Last Filed: 08/29/25 08:16> Side (If applicable): left <Jonas Harris MD - Last Filed: 08/29/25 08:16> Size (cm): 4 <Jonas Harris MD - Last Filed: 08/29/25 08:16> Description: irregular <Jonas Harris MD - Last Filed: 08/29/25 08:16> Depth: simple, single layer <Jonas Harris MD - Last Filed: 08/29/25 08:16> Local Anesthetic: lidocaine 2% <Jonas Harris MD - Last Filed: 08/29/25 08:16> Amount of anesthesia used (mL): 4 <Jonas Harris MD - Last Filed: 08/29/25 08:16> Pre-repair: wound explored and irrigated <Jonas Harris MD - Last Filed: 08/29/25 08:16> ====== Skin Level ======: Skin layer closed with: prolene <Jonas Harris MD - Last Filed: 08/29/25 08:16> Size (cm): 4-0 <Jonas Harris MD - Last Filed: 08/29/25 08:16> Number of sutures: 7 <Jonas Harris MD - Last Filed: 08/29/25 08:16> Technique: simple, interrupted <Jonas Harris MD - Last Filed: 08/29/25 08:16> ====== Subcutaneous Layer ======: ====== Muscle Layer ======: ====== Tendon Layer ======: Laceration 2: Date: 08/28/25 <Jonas Harris MD - Last Filed: 08/29/25 08:16> Time: 18:35 <Jonas Harris MD - Last Filed: 08/29/25 08:16> Site: upper extremity and hand (4th finger) <Jonas Harris MD - Last Filed: 08/29/25 08:16> Side (If applicable): left <oJnas Harris MD - Last Filed: 08/29/25 08:16> Size (cm): 2 <Jonas Harris MD - Last Filed: 08/29/25 08:16> Description: linear and irregular <Jonas Harris MD - Last Filed: 08/29/25 08:16> Depth: simple, single layer <Jonas Harris MD - Last Filed: 08/29/25 08:16> Local Anesthetic: lidocaine 2% <Jonas Harris MD - Last Filed: 08/29/25 08:16> Amount of anesthesia used (mL): 3 <Jonas Harris MD - Last Filed: 08/29/25 08:16> Pre-repair: wound explored, irrigated and minor debridement <Jonas Harris MD - Last Filed: 08/29/25 08:16> ====== Skin Level ======: Skin layer closed with: prolene <Jonas Harris MD - Last Filed: 08/29/25 08:16> Size (cm): 4-0 <Jonas Harris MD - Last Filed: 08/29/25 08:16> Number of sutures: 3 <Jonas Harris MD - Last Filed: 08/29/25 08:16> Technique: simple, interrupted <Jonas Harris MD - Last Filed: 08/29/25 08:16> ====== Subcutaneous Layer ======: ====== Muscle Layer ======: ====== Tendon Layer ======: Laceration 3: Date: 08/28/25 <Jonas Harris MD - Last Filed: 08/29/25 08:16> Time: 18:35 <Jonas Harris MD - Last Filed: 08/29/25 08:16> Site: upper extremity and hand (Fifth finger) <Jonas Harris MD - Last Filed: 08/29/25 08:16> Side (If applicable): left <Jonas Harris MD - Last Filed: 08/29/25 08:16> Size (cm): 3 <Jonas aHrris MD - Last Filed: 08/29/25 08:16> Description: linear and clean <Jonas Harris MD - Last Filed: 08/29/25 08:16> Depth: simple, single layer <Jonas Harris MD - Last Filed: 08/29/25 08:16> Local Anesthetic: lidocaine 2% <Jonas Harris MD - Last Filed: 08/29/25 08:16> Amount of anesthesia used (mL): 4 <Jonas Harris MD - Last Filed: 08/29/25 08:16> Pre-repair: wound explored and irrigated <Jonas Harris MD - Last Filed: 08/29/25 08:16> ====== Skin Level ======: Skin layer closed with: prolene <Jonas Harris MD - Last Filed: 08/29/25 08:16> Size (cm): 4-0 <Jonas Harris MD - Last Filed: 08/29/25 08:16> Number of sutures: 4 <Jonas Harris MD - Last Filed: 08/29/25 08:16> Technique: simple, interrupted <Jonas Harris MD - Last Filed: 08/29/25 08:16> ====== Subcutaneous Layer ======: ====== Muscle Layer ======: ====== Tendon Layer ======: Laceration 4: Date: 08/28/25 <Jonas Harris MD - Last Filed: 08/29/25 08:16> Time: 18:35 <Jonas Harris MD - Last Filed: 08/29/25 08:16> Site: upper extremity and hand (Left fourth finger) <Jonas Harris MD - Last Filed: 08/29/25 08:16> Side (If applicable): left <Jonas Harris MD - Last Filed: 08/29/25 08:16> Size (cm): 1 <Jonas Harris MD - Last Filed: 08/29/25 08:16> Description: linear and clean <Jonas Harris MD - Last Filed: 08/29/25 08:16> Depth: simple, single layer <Jonas Harris MD - Last Filed: 08/29/25 08:16> Local Anesthetic: none <Jonas Harris MD - Last Filed: 08/29/25 08:16> Pre-repair: wound explored and irrigated <Jonas Harris MD - Last Filed: 08/29/25 08:16> ====== Skin Level ======: Skin layer closed with: dermabond <Jonas Harris MD - Last Filed: 08/29/25 08:16> ====== Subcutaneous Layer ======: ====== Muscle Layer ======: ====== Tendon Layer ======: MDM - Extremity Injury (Upper) MDM Narrative Medical decision making narrative: Plan: Imaging, pain control, laceration repair, reassess <Jonas Harris MD - Last Filed: 08/29/25 08:16> Differential Diagnosis Differential diagnosis: Likely fracture of hand and other (Laceration, finger fracture, open fracture, other) <Jonas Harris MD - Last Filed: 08/29/25 08:16> Discharge Plan Discharge Clinical Impression: Laceration of finger of left hand, Left hand pain, Fracture of distal phalanx of finger <Meredith Arreola PA-C - Last Filed: 08/28/25 19:21> Patient Disposition: Home <Meredith Arreola PA-C - Last Filed: 08/28/25 19:21> Condition: Stable <Meredith Arreola PA-C - Last Filed: 08/28/25 19:21> Instructions: Antibiotic Form, Laceration (ED), Finger Fracture (ED) <Meredith Arreola PA-C - Last Filed: 08/28/25 19:21> Additional Instructions: You were seen in the emergency department. X-ray of the left hand showed a possible fracture at the tip of the left middle finger. Your given antibiotics. The lacerations were sutured. I recommend following up with a hand surgeon in 1-2 weeks for wound re-evaluation. I recommend following up in 7-10 days for suture removal. I recommend a course oral antibiotics. If you develop rapidly spreading redness with increasing pain fevers, chills appears blue/cold, or if you have other emergent concerns for life, limb, or eyesight, return to the emergency department. <Meredith Arreola PA-C - Last Filed: 08/28/25 19:21> Patient Language: Kinyarwanda <Meredith Arreola PA-C - Last Filed: 08/28/25 19:21> Prescriptions: New cephalexin 500 mg capsule 500 mg PO Q12H 7 Days Qty: 14 0RF hydrocodone-acetaminophen 5-325 mg tablet 1 tablet PO BID PRN (Reason: severe pain (scale score 7-10)) Qty: 12 0RF No Action Poly-Iron 150 Forte 150-25-1 mg-mcg-mg capsule 1 cap PO BID Qty: 360 2RF Rx Instructions: AVOID DAIRY/CALCIUM CONTAINING PRODUCTS AND/OR ANTACIDS FOR AT LEAST TWO HOURS BEFORE AND AFTER DOSE levothyroxine [Synthroid] 50 mcg tablet See Rx Instructions .ROUTE .COMPLEX Qty: 180 2RF Dose Instruction: TAKE 1 TABLET DAILY Rx Instructions: TAKE 1 TABLET DAILY <Meredith Arreola PA-C - Last Filed: 08/28/25 19:21> Follow-up/Referrals: Pita Ellis MD [Physician, Plastic Surgery] - 1 Week Referral Note: possible 3rd left distal phalanx fracture with laceration Hayder Onofre MD [Primary Care Provider, [facility]] <Meredith Arreola PA-C - Last Filed: 08/28/25 19:21> Time of Disposition: 18:57 <Meredith Arreola PA-C - Last Filed: 08/28/25 19:21> 18:57 <Jonas Harris MD - Last Filed: 08/29/25 08:16>
--- OUTSIDE RECORDS SUMMARY | 2025-08-28 14:43 | XMS_ITS | Clinical Summary ---
Author Organization [address] Address [address] [place] [phone] Care Team Providers Care Airframe And Powerplant Mechanic Name Role Phone Unknown, Notinfile Primary Care [...] Active Active Problems No known active problems Encounters Date Type Department Care Team Description 08/28/2025 12:05 PM CDT Ancillary Procedure [facility] at [address] [phone] Laceration of multiple sites of left hand and fingers, initial encounter 08/28/2025 12:00 PM CDT Office Visit [facility] at [address] [phone] Maureen Ruiz NP Laceration of multiple sites of left hand and fingers, initial encounter (Primary Dx) 08/28/2025 Results Follow-Up [facility] at [address] [phone] Maureen Ruiz NP XR Hand Left 3 or More Views from Last 3 Months Immunizations Immunization Administration Dates Next Due Hep A, Adult 04/26/2013,10/23/2012 Influenza, Quadrivalent, Rec ombinant, Egg Free, Preservative Free, Intramuscular 08/02/2019 Influenza, Trivalent, IM (MDV) 0,07/26/2017,07/21/2016,08/10,07/16/2014,07/17/2013,07/17/2012 ,07/23/2010,10/07/2009 Influenza, Unspecified 08/14/2018 Moderna SARS-CoV-2 Monovalen t Vaccination (12+ YRS) 09/04/2021,01/21/2021,12/24/2020 Pneumococcal Conjugate PCV 13 07/29/2020 Pneumococcal Polysaccharide PPV23 07/20/2021 Td, Not Adsorbed 02/06/2006 ZOSTER LIVE 08/27/2009 Social History Tobacco Use Types Packs/Day Years Used Date Smoking Tobacco: Never Assessed Comments Unknown Sex and Gender Information Value Date Recorded Sex Assigned at Not on file 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 Gender Identity Not on file Sexual Orientation [...] (145 lb) 08/28/2025 11:40 AM CDT Height 170.2 cm (5' 7) 11/04/2023 8:12 AM GLASS CUTTING MACHINE OPERATOR Body Mass Index 22.71 11/04/2023 8:12 AM GLASS CUTTING MACHINE OPERATOR Plan of Treatment Health Maintenance Due Date Last Done Comments Depression Screening 1950 Fall Risk Assessment 1950 Hepatitis C Screening 1950 Osteoporosis Screening-Bone Density Scan 1950 Hepatitis B Screening 1967 DTaP/Tdap/Td Vaccine (1 - Tdap) 02/07/2006 6 Zoster Vaccine (2 of 3) 10/22/2009 08/27/2009 Well Visit 65+ 2014 Covid-19 Vaccine (4 - 2024-2 6 season) 2025 09/04/2021, 01/21/2021, 12/24/2020 Influenza Vaccine (#1) 2025 0, 08/02/2019, 08/14/2018, Additional history exists Pneumococcal vaccine 65+ Completed 07/20/2021, 07/14 Procedures Procedure Name Priority Date/Time Associated Diagnosis Comments XR HAND LEFT 3 OR MORE VIEWS Schedule BRONWYN, Read BRONWYN (Appt Today, Awaiting Results) 08/28/2025 12:10 PM CDT Laceration of multiple sites of left hand and fingers, initial encounter from Last 3 Months Results * XR Hand Left 3 or [...] by Rafael Schmidt M.D. T: Report ID: [id number] Reading Location: [id number] Procedure Note Rafael Schmidt MD - 08/28/2025 [...] by Rafael Schmidt M.D. T: Report ID: [id number] Reading Location: [place] [address] Maureen Ruiz NP IMG XR PROCEDURES Final Re sult from Last 3 Months Insurance [employer] [id number] Care Teams Airframe And Powerplant Mechanic Relationship Specialty Start Date End Date Unknown, Notinfile PCP - General 11/04/23
--- OUTSIDE RECORDS SUMMARY | 2025-08-28 14:43 | XMS_ITS | Clinical Summary ---
Author Organization [facility] Address [address] [place] [address] Care Team Providers Care Dipper Clock And Watch Hands Name Role Phone Unavailable Primary Care Provider Unavailabl e Source Comments [facility],non-owned Affiliates and Associated Physician Practices is amultiple site organization consisting of ambulatory clinics and hospital sitesin [place], [place], [place] and [place]. This disclosure is being madepursuant to the Care Everywhere program and may not contain all information available regarding this patient. Last updated 18.[facility] [employer] Social History Tobacco Use Types Packs/Day Years [...] fective for All Dates) Name:Doreen Ingram Member ID:[id number] Relation to Subscriber:Self Name:Doreen Ingram Subscriber ID:[id number] Payer ID:Not on file Group ID:Not on file Type:[facility] Address: [address] [employer]
--- OUTSIDE RECORDS SUMMARY | 2025-08-28 14:45 | XMS_ITS | Encounter Summary ---
Author Organization [facility] Address [address] [place] [address] Care Team Providers Care Clinical Resource Coordinator Name Role Phone Unavailable Primary Care Provider Unavailabl e Encounter Details Date Type Department Care Team (Late st Contact Info) Description 02/21/2025 Lab Requisition [facility] - DermPath Lab [address] [place] [phone] Sabas Tarango MD [facility] DERMATOLOGY [address] [place] [phone] Social History Tobacco Use Types Packs/Day [...] AM CDT) Case Report Dermatopathology Report Case: [id number] Authorizing Provider: Sabas Tarango MD Collected: 02/20/2025 12:00 AM Ordering Location: [facility] Physician [facility] [...] specimen consists of a shave biopsy measuring 09g30l3 mm. Jar 0. Specimen B: Received is [...] characteristic determined by the Dermatopathology Laboratory at [facility], directed by Dr. Carlyle Galloway. These tests need not be, and therefore are not, approved by the [place] Food and Drug Administration. The tests are used for clinical purposes. Billing Codes Specimen Charges Stain Charges 89381 01328 1 1 1:39 PM CDT DERMATOPATHOLOGY LABORATORY Embedded Images 1:39 PM CDT DERMATOPATHOLOGY LABORATORY Pathology/Cytology TISSUE SPECIMEN FROM SKIN / Unknown 02/20/2025 02/21/2025 4:43 PM CDT Miscellaneous samples (specimen) TISSUE SPECIMEN FROM SKIN / Unknown 02/20/2025 02/21/2025 4:43 PM CDT us Sabas Tarango MD LAB - PATHOLOGY/CYTOLOGY ORDE LUIS Final Result DERMATOPATHOLOGY LABORATORY [facility] - Department of Dermatology [facility] Medicine [address] [place] [address], [address] [phone] documented in this encounter Visit Diagnoses Not on filedocumented in this encounter
--- OUTSIDE RECORDS SUMMARY | 2025-08-28 14:45 | XMS_ITS | Encounter Summary ---
Author Organization [facility] Address [address] [place] [address] Care Team Providers Care Senior Procurement Manager Name Role Phone Unavailable Primary Care Provider Unavailabl e Encounter Details Date Type Department Care Team (Late st Contact Info) Description 04/21/2023 Lab Requisition [facility] - DermPath Lab [address] [place] [phone] Corinna David MD [address] [place] [address] [place] [phone] Basal cell carcinoma of skin of other [...] AM CDT) Case Report Dermatopathology Report Case: [id number] Authorizing Provider: Corinna David MD Collected: 04/21/2023 03:33 AM Ordering Location: [facility] DermPath Lab Received: 04/24/2023 12:17 PM Pathologist: [...] of a non-oriented ellipse of skin measuring 98f37l6 mm. The epidermal surface is unremarkable. The [...] characteristic determined by the Dermatopathology Laboratory at [facility], directed by Dr. Carlyle Galloway. These tests need not be, and therefore are not, approved by the [place] Food and Drug Administration. The tests are used for clinical purposes. Billing Codes Specimen Charges Stain Charges 60561 1 3 12:20 PM CDT DERMATOPATHOLOGY LABORATORY Embedded Images 3 12:20 PM CDT DERMATOPATHOLOGY LABORATORY Pathology/Cytolo gy TISSUE SPECIMEN FROM SKIN / Unknown 04/21/2023 3:33 AM CDT 04/24/2023 12:17 PM CDT us Corinna David MD LAB - PATHOLOGY/CYTOLOGY ORDERAB LES Final Result DERMATOPATHOLOGY LABORATORY [facility] - Department of Dermatology [address] [place] [address], [facility] [phone] documented in this encounter Visit Diagnoses Diagnosis Basal cell carcinoma of skin of other part of trunk documented in this encounter
--- OUTSIDE RECORDS SUMMARY | 2025-08-28 14:45 | XMS_ITS | Encounter Summary ---
Author Organization [facility] Address [address] [place] [address] Care Team Providers Care Family Reunification Specialist Name Role Phone Unavailable Primary Care Provider Unavailabl e Encounter Details Date Type Department Care Team (Late st Contact Info) Description 09/02/2024 Lab Requisition [facility] - DermPath Lab [address] [place] [phone] Sabas Tarango MD [facility] DERMATOLOGY [address] [place] [phone] Neoplasm of uncertain behavior of skin [...] AM CDT) Case Report Dermatopathology Report Case: [id number] Authorizing Provider: Sabas Tarango MD Collected: 09/02/2024 03:33 AM Ordering Location: [facility] - Received: 09/03/2024 12:21 [...] characteristic determined by the Dermatopathology Laboratory at [facility], directed by Dr. Carlyle Galloway. These tests need not be, and therefore are not, approved by the [place] Food and Drug Administration. The tests are used for clinical purposes. Billing Codes Specimen Charges Stain Charges 87534 1 12:33 PM CDT DERMATOPATHOLOGY LABORATORY Embedded Images 12:33 PM CDT DERMATOPATHOLOGY LABORATORY Pathology/Cytolo gy TISSUE SPECIMEN FROM SKIN / Unknown 09/02/2024 3:33 AM CDT 09/03/2024 12:21 PM CDT us Sabas Tarango MD LAB - PATHOLOGY/CYTOLOGY [place]SON SMITH Final Result DERMATOPATHOLOGY LABORATORY [facility] - Department of Dermatology [address], [address] [phone] documented in this encounter Visit Diagnoses Diagnosis Neoplasm of uncertain behavior of skin documented in this encounter
--- OUTSIDE RECORDS SUMMARY | 2025-08-28 14:46 | XMS_ITS | Encounter Summary ---
Author Organization [facility] Address [address] [place] [address] Care Team Providers Care Backfiller Name Role Phone Unknown, Notinfglenn Primary Care Provider Unavail able Encounter Details Date Type Department Care Team (Late st Contact Info) Description 08/28/2025 Results Follow-Up [facility] at [place] [id number] [place] [address] Maureen Ruiz, SUPERVISOR [employer] [address] [place] [address] [address] [place] [address] XR Hand Left 3 or More Views Social History Tobacco Use Types Packs/Day Years Used Date Smoking Tobacco: Never Assessed Comments Unknown Sex and Gender Information Value Date Recorded Sex Assigned at Not on file 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
--- OUTSIDE RECORDS SUMMARY | 2025-08-28 17:57 | XMS_ITS | Encounter Summary ---
Author Organization [facility] Address [address] [facility] [place] [address] Care Team Providers Care Cleaning And Maintenance Worker Name Role Phone Unavailable Primary Care Provider Unavailabl e Encounter Details Date Type Department Care Team (Late st Contact Info) Description 02/21/2025 Lab Requisition [facility] - DermPath Lab [address] [place] [phone] Sabas Tarango MD [facility] DERMATOLOGY [address] [place] [phone] Social History Tobacco Use Types Packs/Day [...] AM CDT) Case Report Dermatopathology Report Case: [id number] Authorizing Provider: Sabas Tarango MD Collected: 02/20/2025 12:00 AM Ordering Location: [facility] Physician [facility] - Received: 02/21/2025 04:43 PM DermPath Lab [...] specimen consists of a shave biopsy measuring 17d98p8 mm. Jar 0. Specimen B: Received is [...] characteristic determined by the Dermatopathology Laboratory at [facility], directed by Dr. Carlyle Galloway. These tests need not be, and therefore are not, approved by the [place] Food and Drug Administration. The tests are used for clinical purposes. Billing Codes Specimen Charges Stain Charges 80192 86074 1 1 1:39 PM CDT DERMATOPATHOLOGY LABORATORY Embedded Images 1:39 PM CDT DERMATOPATHOLOGY LABORATORY Pathology/Cytology TISSUE SPECIMEN FROM SKIN / Unknown 02/20/2025 02/21/2025 4:43 PM CDT Miscellaneous samples (specimen) TISSUE SPECIMEN FROM SKIN / Unknown 02/20/2025 02/21/2025 4:43 PM CDT us Sabas Tarango MD LAB - PATHOLOGY/CYTOLOGY ORDE LUIS Final Result DERMATOPATHOLOGY LABORATORY [facility] - Department of Dermatology [facility] Medicine [address] [place] [address], [address] [phone] documented in this encounter Visit Diagnoses Not on filedocumented in this encounter
--- OUTSIDE RECORDS SUMMARY | 2025-08-28 17:57 | XMS_ITS | Encounter Summary ---
Author Organization [facility] Address [address] [place] [address] Care Team Providers Care Mediator Name Role Phone Unavailable Primary Care Provider Unavailabl e Encounter Details Date Type Department Care Team (Late st Contact Info) Description 09/02/2024 Lab Requisition [facility] - DermPath Lab [address] [place] [phone] Sabas Tarango MD [facility] DERMATOLOGY [address] [place] [phone] Neoplasm of uncertain behavior of skin [...] AM CDT) Case Report Dermatopathology Report Case: [id number] Authorizing Provider: Sabas Tarango MD Collected: 09/02/2024 03:33 AM Ordering Location: [facility] - Received: 09/03/2024 12:21 PM [...] characteristic determined by the Dermatopathology Laboratory at [facility], directed by Dr. Carlyle Galloway. These tests need not be, and therefore are not, approved by the [place] Food and Drug Administration. The tests are used for clinical purposes. Billing Codes Specimen Charges Stain Charges 41511 1 12:33 PM CDT DERMATOPATHOLOGY LABORATORY Embedded Images 12:33 PM CDT DERMATOPATHOLOGY LABORATORY Pathology/Cytolo gy TISSUE SPECIMEN FROM SKIN / Unknown 09/02/2024 3:33 AM CDT 09/03/2024 12:21 PM CDT us Sabas Tarango MD LAB - PATHOLOGY/CYTOLOGY NELSON SMITH Final Result DERMATOPATHOLOGY LABORATORY [facility] - Department of Dermatology [address], [address] Floor [address] [phone] documented in this encounter Visit Diagnoses Diagnosis Neoplasm of uncertain behavior of skin documented in this encounter
--- OUTSIDE RECORDS SUMMARY | 2025-08-28 17:57 | XMS_ITS | Encounter Summary ---
Author Organization [facility] Address [address] [facility] [place] [address] Care Team Providers Care Alarm Service Technician Name Role Phone Unavailable Primary Care Provider Unavailabl e Encounter Details Date Type Department Care Team (Late st Contact Info) Description 04/21/2023 Lab Requisition [facility] - DermPath Lab [address] [place] [phone] Corinna David MD [address] [place] [address] [place] [phone] Basal cell carcinoma of skin of other [...] AM CDT) Case Report Dermatopathology Report Case: [id number] Authorizing Provider: Corinna David MD Collected: 04/21/2023 03:33 AM Ordering Location: [facility] DermPath Lab Received: 04/24/2023 12:17 PM Pathologist: [...] of a non-oriented ellipse of skin measuring 28v82k9 mm. The epidermal surface is unremarkable. The [...] determined by the Dermatopathology Laboratory at [facility], directed by Dr. Carlyle Galloway. These tests need not be, and therefore are not, approved by the [place] Food and Drug Administration. The tests are used for clinical purposes. Billing Codes Specimen Charges Stain Charges 51187 1 3 12:20 PM CDT DERMATOPATHOLOGY LABORATORY Embedded Images 3 12:20 PM CDT DERMATOPATHOLOGY LABORATORY Pathology/Cytolo gy TISSUE SPECIMEN FROM SKIN / Unknown 04/21/2023 3:33 AM CDT 04/24/2023 12:17 PM CDT us Corinna David MD LAB - PATHOLOGY/CYTOLOGY ORDERAB LES Final Result DERMATOPATHOLOGY LABORATORY [facility] - Department of Dermatology [address] [place] [address], [facility] [phone] documented in this encounter Visit Diagnoses Diagnosis Basal cell carcinoma of skin of other part of trunk documented in this encounter
--- OUTSIDE RECORDS SUMMARY | 2025-08-28 17:57 | XMS_ITS | Clinical Summary ---
Author Organization [facility] Address [address] [place] [address] Care Team Providers Care Pitch Worker Name Role Phone Unavailable Primary Care Provider Unavailabl e Source Comments [facility],non-owned Affiliates and Associated Physician Practices is amultiple site organization consisting of ambulatory clinics and hospital sitesin [place], [place], [place]. This disclosure is being madepursuant to the Care Everywhere program and may not contain all information available regarding this patient. Last updated 18.[facility] [employer] (formerly [employer]) Social History Tobacco Use Types Packs/Day Years [...] to complete this topic [place] [facility] [place]: [address] [employer] [facility] [place] [facility] [place]: [place] [address] [facility] [place] [facility] [place] [address] [facility] [place] [facility] [place] Address: [place] [address]
--- OUTSIDE RECORDS SUMMARY | 2025-08-28 17:57 | XMS_ITS | Clinical Summary ---
Author Organization [address] Address [address] [place] [phone] Care Team Providers Care Courtroom Deputy Name Role Phone Unknown, Notinfile Primary Care [...] Description 08/28/2025 12:05 PM CDT Ancillary Procedure [facility] at [address] [phone] Laceration of multiple sites of left hand and fingers, initial encounter 08/28/2025 12:00 PM CDT Office Visit [facility] at [address] [phone] Maureen Ruiz NP Laceration of multiple sites of left hand and fingers, initial encounter (Primary Dx) 08/28/2025 Results Follow-Up [facility] at [address] [phone] Maureen Ruiz NP XR Hand [...] on file 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 T: Report ID: [id number] Reading Location: [id number] Procedure Note Rafael Schmidt MD - 08/28/2025 [...] by Rafael Schmidt M.D. T: Report ID: [id number] Reading Location: [place] [address] Maureen Ruiz NP IMG XR PROCEDURES Final Re sult from Last 3 Months Insurance [facility] [id number] Care Teams Courtroom Deputy Relationship Specialty Start Date End Date Unknown, Notinfile PCP - General 11/04/23
--- OUTSIDE RECORDS SUMMARY | 2025-08-28 17:57 | XMS_ITS | Encounter Summary ---
Author Organization [facility] Address [address] [facility] [place] [address] Care Team Providers Care Natural Science Manager Name Role Phone Unavailable Primary Care Provider Unavailabl e Encounter Details Date Type Department Care Team (Late st Contact Info) Description 03/13/2025 Lab Requisition [facility] - DermPath Lab [address] [place] [phone] Sabas Tarango MD [facility] DERMATOLOGY [address] [place] [phone] Squamous cell carcinoma of skin of [...] PM CDT) Case Report Dermatopathology Report Case: [id number] Authorizing Provider: Sabas Tarango MD Collected: 03/13/2025 01:44 PM Ordering Location: [facility] - Received: 03/17/2025 06:27 AM DermPath Lab [...] of a non-oriented ellipse of skin measuring 86k73d6 mm. The epidermal surface is unremarkable. The [...] determined by the Dermatopathology Laboratory at [facility], directed by Dr. Carlyle Galloway. These tests need not be, and therefore are not, approved by the [place] Food and Drug Administration. The tests are used for clinical purposes. Billing Codes Specimen Charges Stain Charges 08338 1 3:24 PM CDT DERMATOPATHOLOGY LABORATORY Embedded Images 3:24 PM CDT DERMATOPATHOLOGY LABORATORY Pathology/Cytolo gy TISSUE SPECIMEN FROM SKIN / Unknown 03/13/2025 1:44 PM CDT 03/17/2025 6:27 AM CDT Sabas Tarango MD LAB - PATHOLOGY/CYTOLOGY DEMARCUSE LUIS Final Result DERMATOPATHOLOGY LABORATORY [facility] - Department of Dermatology [facility] [address] 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
--- OUTSIDE RECORDS SUMMARY | 2025-08-28 17:58 | XMS_ITS | Encounter Summary ---
Author Organization [facility] Address [address] [place] [id number] Care Team Providers Care Clinical Recruiter Name Role Phone Unknown, Notinfglenn Primary Care Provider Unavail able Encounter Details Date Type Department Care Team (Late st Contact Info) Description 08/28/2025 Results Follow-Up [facility] at [place] [id number] [place] [address] Maureen Ruiz, ENRICHMENT DIRECTOR [address] [place] [address] [address] [place] [address] XR Hand Left 3 or More Views Social History Tobacco Use Types Packs/Day Years Used Date Smoking Tobacco: Never Assessed Comments Unknown Sex and Gender Information Value Date Recorded Sex Assigned at Not on file 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
== END 2025-08-28 19:36 | disposition home or self-care (01) ==
PROVIDERS: Emergency Provider Preventive Medicine Aerospace Medicine; PCP Family Medicine
DX: S61.213A Laceration without foreign body of left middle finger without damage to nail, initial encounter (principal); S61.215A Laceration without foreign body of left ring finger without damage to nail, initial encounter; S61.217A Laceration without foreign body of left little finger without damage to nail, initial encounter; S62.663A Nondisplaced fracture of distal phalanx of left middle finger, initial encounter for closed fracture; Z85.828 Personal history of other malignant neoplasm of skin; W29.3XXA Contact with powered garden and outdoor hand tools and machinery, initial encounter
CPT/HCPCS: 12004; 29130; 73130; 96374; 99284; J0690